=== PATIENT | male | born 1965 | race Asian ===

== ENCOUNTER 2017-03-15 19:47 | Emergency (ER) | payer SELFPAY ==
[2017-03-15] MEDS ORDERED: Meclizine TAB* 12.5 MG PO ONE (20:14)
[2017-03-15 20:23] LABS: Hematocrit 43 % (42-52); Hemoglobin 14.5 g/dl (14.0-18.0); Mean Corpuscular HGB Conc 34 g/dl (31-36); Mean Corpuscular Hemoglobin 31 pg (27-31); Mean Corpuscular Volume 92 fL (80-94); Mean Platelet Volume 7 um3 (7.4-10.4); Red Blood Count 4.66 10^6/ul (4.0-5.4); Red Cell Distribution Width 13 % (10.5-15); White Blood Count 8.2 10^3/ul (3.5-10.8)
[2017-03-15 20:24] LABS: Albumin 4.1 g/dL (3.2-5.2); BUN/Creatinine Ratio 12.4 (8-20); EGFR African American 116.8 (>60); EGFR Non-African American 90.9 (>60); Globulin 2.7 g/dL (2-4); Potassium 3.1 mmol/L (3.5-5.0); Total Bilirubin 0.6 mg/dL (0.2-1.0); Total Protein 6.8 g/dL (6.4-8.9)
[2017-03-15 20:41] LABS: Magnesium 2.3 mg/dL (1.9-2.7)
[2017-03-15 20:58] LABS: TSH (Thyroid Stimulating Horm) 9.64 mcIU/mL (0.34-5.60)
--- NOTE | 2017-03-15 22:26 | RAD ---
INDICATION: Head injury. COMPARISON: There are no prior studies available for comparison. TECHNIQUE: Contiguous axial sections of the brain were obtained from the skull base to the vertex without contrast. FINDINGS: There are multiple focal areas of hemorrhage present bilaterally mainly within the inferior portion of the frontal lobes most consistent with hemorrhagic contusions. There is a small subdural hematoma anterior to the right temporal and frontal lobes and also along the anterior portion of the falx. This causes mild local mass effect and mild bowing of the falx toward the left side. The ventricles are centered about the midline. There is also a smaller area of parenchymal hemorrhage located high in the left frontal lobe. There is a hematoma in the scalp anterior to the right frontal bone measuring approximately 6.5 x 0.7 cm in size. There is a linear nondisplaced fracture extending from the level of the frontal sinus superiorly through the right frontal bone and into the parietal bone at the level of the vertex. There is an air-fluid level within the sphenoid sinus. The visualized paranasal sinuses and mastoid air cells are otherwise clear. The results of this exam were discussed with the referring clinician. IMPRESSION: 1. EXTENSIVE HEMORRHAGIC CONTUSIONS PRESENT BILATERALLY WITHIN THE FRONTAL LOBES. 2. SMALL SUBDURAL HEMATOMA ANTERIOR TO THE RIGHT TEMPORAL AND FRONTAL LOBES AND ALSO ALONG THE FALX. 3. NONDISPLACED FRACTURE THROUGH THE RIGHT FRONTAL AND PARIETAL BONES DESCRIBED. 4. AIR-FLUID LEVEL WITHIN THE SPHENOID SINUS.
--- NOTE | 2017-03-15 22:58 | ED ---
Arnav Ireland Matthew, scribed for Jamie Davalos MD on 03/15/17 at 2240 . Dizziness - HPI Summary HPI Summary: A 51 y/o male presents to the ED with sudden dizziness described as the room spinning since 19:00. The patient was walking out of a restaurant with his friends, when he became dizzy and fell backwards like a board. Per his friends, the patient struck the back of his head and the sound reverberated through the parking lot. He was unconscious for 1-2 minutes after the fall. Associated symptoms include nausea. He denies SOB and chest pain. He states that he had one beer at dinner. - History Of Current Complaint Chief Complaint: EDDizziness Stated Complaint: POSS STEMI Hx Obtained From: Patient Onset/Duration: Still Present Timing: Constant Severity Initially: Moderate Severity Currently: Moderate Character: Room Spinning, Dizzy Associated Signs And Symptoms: Positive: Nausea. Negative: Chest Pain, SOB - Allergies/Home Medications Allergies/Adverse Reactions: Allergies Allergy/AdvReac Type Severity Reaction Status Date / Time No Known Allergies Allergy Verified 03/15/17 19:58 PMH/Surg Hx/FS Hx/Imm Hx Endocrine/Hematology History: Denies: Hx Diabetes Cardiovascular History: Reports: Hx Hypertension Infectious Disease History: No Infectious Disease History: Denies: Traveled Outside the [place] in Last 30 Days - Family History Known Family History: Positive: Hypertension - Father - Social History Alcohol Use: Occasionally Substance Use Type: Reports: None Smoking Status (MU): Unknown if Ever Smoked Review of Systems Constitutional: Negative Eyes: Negative ENT: Negative Cardiovascular: Negative Negative: Chest Pain Respiratory: Negative Negative: Shortness Of Breath Gastrointestinal: Negative Genitourinary: Negative Musculoskeletal: Negative Skin: Negative Neurological: Other - Dizziness Psychological: Normal All Other Systems Reviewed And Are Negative: Yes Physical Exam Triage Information Reviewed: Yes Vital Signs On Initial Exam: Initial Vitals Temp Pulse Resp BP Pulse Ox 97.7 F 66 20 92/56 99 03/15/17 19:51 03/15/17 19:51 03/15/17 19:51 03/15/17 19:51 03/15/17 19:51 Vital Signs Reviewed: Yes Appearance: Positive: No Pain Distress Skin: Positive: Warm, Skin Color Reflects Adequate Perfusion, Dry Head/Face: Positive: Normal Head/Face Inspection, Other - No abrasion on the head noted. Eyes: Positive: EOMI, ANDREW, Other: - Pupils 3-4mm and reactive ENT: Positive: Normal ENT inspection Neck: Positive: Supple, Nontender, Other: - No neck tenderness to palpation Respiratory/Lung Sounds: Positive: Clear to Auscultation, Breath Sounds Present Cardiovascular: Positive: RRR Abdomen Description: Positive: Nontender, Soft Bowel Sounds: Positive: Present Musculoskeletal: Positive: Strength/ROM Intact - Moves all extremities Neurological: Positive: Alert, Oriented to Person Place, Time, Other - Awake, alert, answering questions appropriately Psychiatric: Positive: Normal - Bashir Coma Scale Coma Scale Total: 15 Diagnostics - Vital Signs Vital Signs Temp Pulse Resp BP Pulse Ox 03/15/17 22:30 78 13 125/75 99 03/15/17 22:13 78 20 03/15/17 22:03 100 03/15/17 22:01 79 16 100 03/15/17 22:00 116/69 03/15/17 21:51 76 19 99 03/15/17 21:00 74 18 99 03/15/17 20:13 69 20 99 03/15/17 19:51 97.7 F 66 20 92/56 99 - Laboratory Lab Results: Lab Results 03/15/17 03/15/17 03/15/17 Range/Units 19:55 19:55 19:55 WBC 8.2 (3.5-10.8) 10^3/ul RBC 4.66 (4.0-5.4) 10^6/ul Hgb 14.5 (14.0-18.0) g/dl Hct 43 (42-52) % MCV 92 (80-94) fL MCH 31 (27-31) pg MCHC 34 (31-36) g/dl RDW 13 (10.5-15) % Plt Count 184 (150-450) 10^3/ul MPV 7 L (7.4-10.4) um3 Neut % (Auto) 49.7 (38-83) % Lymph % (Auto) 42.6 (25-47) % [place] % (Auto) 5.6 (1-9) % Eos % (Auto) 1.5 (0-6) % Baso % (Auto) 0.6 (0-2) % Absolute Neuts (auto) 4.1 (1.5-7.7) 10^3/ul Absolute Lymphs (auto) 3.5 (1.0-4.8) 10^3/ul Absolute Monos (auto) 0.5 (0-0.8) 10^3/ul Absolute Eos (auto) 0.1 (0-0.6) 10^3/ul Absolute Basos (auto) 0.1 (0-0.2) 10^3/ul Absolute Nucleated RBC 0.01 10^3/ul Nucleated RBC % 0.1 Sodium 138 (133-145) mmol/L Potassium 3.1 L (3.5-5.0) mmol/L Chloride 103 (101-111) mmol/L Carbon Dioxide 25 (22-32) mmol/L Anion Gap 10 (2-11) mmol/L BUN 11 (6-24) mg/dL Creatinine 0.89 (0.67-1.17) mg/dL Est GFR ( Amer) 116.8 (>60) Est GFR (Non-Af Amer) 90.9 (>60) BUN/Creatinine Ratio 12.4 (8-20) Glucose 119 H (70-100) mg/dL Lactic Acid 2.4 H* (0.5-2.0) mmol/L Calcium 9.0 (8.6-10.3) mg/dL Magnesium 2.3 (1.9-2.7) mg/dL Total Bilirubin 0.60 (0.2-1.0) mg/dL AST 23 (13-39) U/L ALT 23 (7-52) U/L Alkaline Phosphatase 53 (34-104) U/L Troponin I 0.00 (<0.04) ng/mL Total Protein 6.8 (6.4-8.9) g/dL Albumin 4.1 (3.2-5.2) g/dL Globulin 2.7 (2-4) g/dL Albumin/Globulin Ratio 1.5 (1-3) TSH 9.64 H (0.34-5.60) mcIU/mL Serum Alcohol 27 H (<10) mg/dL Result Diagrams: 03/15/17 19:55 03/15/17 19:55 Lab Statement: Any lab studies that have been ordered have been reviewed, and results considered in the medical decision making process. - CT Brain CT CT Interpretation: Positive (See Comments) - IMPRESSION: 1. EXTENSIVE HEMORRHAGIC CONTUSIONS PRESENT BILATERALLY WITHIN THE FRONTAL LOBES. 2. SMALL SUBDURAL HEMATOMA ANTERIOR TO THE RIGHT TEMPORAL AND FRONTAL LOBES AND ALSO ALONG THE FALX. 3. NONDISPLACED FRACTURE THROUGH THE RIGHT FRONTAL AND PARIETAL BONES DESCRIBED. 4. AIR-FLUID LEVEL WITHIN THE SPHENOID SINUS. CT Interpretation Completed By: Radiologist - EKG 19:47 Cardiac Rate: NL - 66 bpm EKG Rhythm: Sinus Rhythm EKG Interpretation: Early repolarization Dizzy Course/Dx - Course Course Of Treatment: Mr. Mcarthur remained stable here in the ED. He was conscious and alert but preferred to rest with his eyes closed. He was found to have extensive frontal contusion with a small subdural and a frontal skull fracture. Neither helicopter service was available to fly him after he was accepted at [facility] (we have no neurosurgical coverage this weekend) therefore [place] was contacted for transfer. - Diagnoses Provider Diagnoses: Intracerebral bleed due to trauma - Provider Notifications Discussed Care Of Patient with: Dr. Frank ([facility] ED) at 22:31 -- Notified of patient's history and accepts transfer of the patient. - Critical Care Time Critical Care Time: 30-74 min Discharge - Discharge Plan Condition: Stable Disposition: TRANS HIGHER LVL OF CARE FAC Referrals: Non Staff,Doctor [Primary Care Provider] - The documentation as recorded by the Arnav valdivia Matthew accurately reflects the service I personally performed and the decisions made by me, Jamie Davalos MD.
[2017-03-15] MEDS ORDERED: Ondansetron INJ* 2 MG/ML VIAL ONE (22:59)
[2017-03-15] MEDS ORDERED: Ondansetron INJ* 2 MG/ML VIAL IV ONE (22:59)
[2017-03-15 23:11] VITALS: BP 124/74
== END 2017-03-15 23:23 | disposition short-term general hospital (02) ==
LOC: EDBD → ED 19:47
DX: S06.300A Unspecified focal traumatic brain injury without loss of consciousness, initial encounter (principal); R11.0 Nausea; R42 Dizziness and giddiness; W19.XXXA Unspecified fall, initial encounter; Y93.9 Activity, unspecified; Y92.9 Unspecified place or not applicable
CPT/HCPCS: 36415; 70450; 80053; 80320; 83605; 83735; 84443; 84484; 85025; 93005; 96374; 96375; 99283; A9270-GY; G0480; J2405